=== PATIENT | female | born 1945 | race Caucasian/White ===

== ENCOUNTER 2017-05-25 03:26 | Inpatient (IN) ==
[2017-05-25] MEDS ORDERED: MORPHINE 2 MG/1 ML SYRINGE IV STA (04:09)
[2017-05-25] MEDS ORDERED: PIPERACILLIN/TAZOBACTAM 3,375 MG in SODIUM CHLORIDE 0.9% 100 ML IV STA (04:09)
[2017-05-25] MEDS ORDERED: ONDANSETRON 4 MG/2 ML VIAL IV STA ×2 (04:09→05:44)
[2017-05-25] MEDS ORDERED: PIPERACILLIN/TAZOBACTAM 3,375 MG VIAL IV ONE (04:12)
[2017-05-25] MEDS ORDERED: ONDANSETRON 4 MG/2 ML VIAL ONE ×2 (04:12→05:38)
[2017-05-25] MEDS ORDERED: SODIUM CHLORIDE 0.9% 100 ML IV ONE (04:12)
[2017-05-25] MEDS ORDERED: MORPHINE 2 MG/1 ML SYRINGE ONE (04:13)
[2017-05-25] MEDS ORDERED: SODIUM CHLORIDE 0.9% 1,000 ML IV STA (04:22)
[2017-05-25] MEDS ORDERED: ACETAMINOPHEN 325 MG TABLET PO PRN (05:57)
[2017-05-25] MEDS ORDERED: metroNIDAZOLE INJ 500 MG in PREMIX 1 EACH IV SCH ×2 (06:00→11:30)
[2017-05-25] MEDS ORDERED: DEXTROSE 5% NACL 0.45% 1,000 ML IV SCH (06:00)
[2017-05-25] MEDS: PIPERACILLIN/TAZOBACTAM 3,375 MG in SODIUM CHLORIDE 0.9% 100 ML IV SCH ×2 (07:56→14:30)
[2017-05-25] MEDS: HYDROmorphone 2 MG/1 ML VIAL IV PRN ×2 (08:08→14:21)
[2017-05-25] MEDS ORDERED: PANTOPRAZOLE 40 MG TABLET PO SCH (09:00)
[2017-05-25] MEDS: ONDANSETRON 4 MG/2 ML VIAL IV PRN ×2 (10:17→14:26)
[2017-05-25 13:11] VITALS: BP 118/62
[2017-05-25] MEDS ORDERED: ENOXAPARIN 30 MG/0.3 ML SYRINGE SUBCUT SCH (21:00)
== END 2017-05-25 14:35 | disposition hospice, home (50) | DRG 392 ==
LOC: N.ED 03:26 → N.EDINP 05:57 → N.3E 06:17
PROVIDERS: ADMIT Surgery; ATTEND Surgery

== ENCOUNTER 2020-10-10 13:26 | Inpatient (IN) ==
[2020-10-10 14:01] LABS: Basophils % 0.2 % (0.0-0.8); Eosinophils % 0.1 % (0.00-10.9); Hematocrit 31.7 VOL% (35.7-47.0); Hemoglobin 10.3 GM/DL (12.0-16.0); Immature Granulocytes % 12.3 %; Immature Granulocytes Absolute 1.77 #; Lymphocytes # 3.5 10*3/uL (1.4-4.0); Lymphocytes % 24.3 % (21.3-54.2); Mean Corpuscular HGB Conc 32.5 GM/DL (32-36); Mean Corpuscular Volume 82.3 FL (87-102); NRBC # 1.43 10*3/uL; Neutrophils % 55.1 % (38.7-73.9); Red Blood Count 3.85 MC/CUMM (3.8-5.5); Red Cell Distribution Width 19.8 % (9.3-17.3); White Blood Count 14.4 T/CUMM (4-12)
[2020-10-10 14:02] LABS: Platelet Count 23 T/CUMM (130-400)
[2020-10-10 14:16] LABS: Albumin 2.5 G/DL (3.4-5.0); Bilirubin,Total 1.5 MG/DL (0.2-1.0); Calcium 9.1 MG/DL (8.5-10.1); Osmolality,Calculated 283.5 MOS/KG (273-304); Potassium 3.9 MMOL/L (3.5-5.1); Total Protein 6.7 G/DL (6.4-8.2)
[2020-10-10 14:28] LABS: Band Neutrophils 5 % (0-10); Lymphocytes 22 % (20-55); Metamyelocytes 5 %; Myelocytes 3 %; Nucleated Red Blood Cells 8 (0-5); Segmented Neutrophils 62 % (50-85); Total Cells Counted 100
[2020-10-10] MEDS ORDERED: SODIUM CHLORIDE 0.9% 2,050 ML IV ONE (14:39)
[2020-10-10 14:43] LABS: Anisocytosis 2+; Atypical Lymphocytes 2+; Macrocytosis Slight; Microcytosis 2+; Platelet Estimate Decreased; Polychromasia 2+; Reactive Lymphocytes 1+; Schistocytes 1+
[2020-10-10 14:45] LABS: Poikilocytosis 1+
[2020-10-10] MEDS: PIPERACILLIN/TAZOBACTAM 3,375 MG in SODIUM CHLORIDE 0.9% 100 ML IV SCH ×2 (16:25→23:07)
[2020-10-10 16:28] LABS: Bacteria,Urine Occasional /HPF (Few); Bilirubin,Urine Negative (Negative); Blood, Urine Negative (Negative); Glucose,Urine (UA) Negative (Negative); Hyaline Casts,Urine 3 /LPF (0-3); Ketones,Urine Negative (Negative); Mucus,Urine Occasional /LPF (Occasional); Nitrite,Urine Negative (Negative); Protein,Urine Negative; RBC,Urine 1 /HPF (0-4); Squamous Epithelial Cell,Urine Occasional /HPF (0-10); Urine Appearance CLEAR (Clear); Urine Color Yellow (Yellow); Urine Urobilinogen < 2.0 EU/DL (0.2-1.0)
[2020-10-10] MEDS ORDERED: DEXTROSE 50% 25 GM/50 ML VIAL IV PRN (16:46)
[2020-10-10] MEDS ORDERED: hydrALAZINE 20 MG/1 ML VIAL IV PRN (16:46)
[2020-10-10] MEDS ORDERED: GLUCAGON 1 MG VIAL IM PRN (16:46)
[2020-10-10] MEDS: SODIUM CHLORIDE 0.9% 1,000 ML IV SCH (17:30)
[2020-10-10] MEDS: ALBUTEROL/IPRATROPIUM 3 ML NEB RESP TX SCH (19:37)
[2020-10-10] MEDS ORDERED: VANCOMYCIN INJ 1,250 MG in SODIUM CHLORIDE 0.9% 250 ML IV SCH (20:00)
[2020-10-10] MEDS: GABAPENTIN 300 MG CAPSULE PO SCH (23:31)
[2020-10-10] MEDS: traMADol 50 MG TABLET PO PRN (23:33)
[2020-10-11] MEDS: ALBUTEROL/IPRATROPIUM 3 ML NEB RESP TX SCH ×4 (01:23→20:42)
[2020-10-11 06:57] LABS: Basophils # 0.1 10*3/uL (0.0-0.2); Basophils % 0.7 % (0.0-0.8); Eosinophils % 0.2 % (0.00-10.9); Hematocrit 25.5 VOL% (35.7-47.0); Hemoglobin 8.4 GM/DL (12.0-16.0); Immature Granulocytes % 11.4 %; Immature Granulocytes Absolute 1.12 #; Lymphocytes # 2.9 10*3/uL (1.4-4.0); Lymphocytes % 29.4 % (21.3-54.2); Mean Corpuscular HGB Conc 32.9 GM/DL (32-36); Mean Corpuscular Volume 83.6 FL (87-102); Monocytes % 7.6 % (1.7-12.7); Neutrophils % 50.7 % (38.7-73.9); Red Blood Count 3.05 MC/CUMM (3.8-5.5); Red Cell Distribution Width 19.8 % (9.3-17.3); White Blood Count 9.8 T/CUMM (4-12)
[2020-10-11 07:11] LABS: Platelet Count 15 T/CUMM (130-400)
[2020-10-11 07:14] LABS: Calcium 8.1 MG/DL (8.5-10.1); Potassium 3.4 MMOL/L (3.5-5.1)
[2020-10-11 07:24] LABS: Band Neutrophils 4 % (0-10); Eosinophils 1 % (0-10); Hypochromasia 1+; Lymphocytes 25 % (20-55); Microcytosis 1+; Nucleated Red Blood Cells 10 (0-5); Platelet Estimate Decreased; Segmented Neutrophils 65 % (50-85); Total Cells Counted 100
[2020-10-11 07:25] LABS: Atypical Lymphocytes Few
[2020-10-11] MEDS ORDERED: POTASSIUM CHLORIDE 20 MEQ TABLET PO ONE (07:39)
[2020-10-11] MEDS: SODIUM CHLORIDE 0.9% 1,000 ML IV SCH ×3 (08:04→20:34)
[2020-10-11] MEDS ORDERED: SODIUM CHLORIDE 0.9% 1,000 ML IV PRN (08:25)
[2020-10-11] MEDS: PANTOPRAZOLE 40 MG TABLET PO SCH (09:10)
[2020-10-11] MEDS: ONDANSETRON 4 MG/2 ML VIAL IV PRN ×2 (12:53→18:10)
[2020-10-11] MEDS: traMADol 50 MG TABLET PO PRN (20:01)
[2020-10-11] MEDS: PIPERACILLIN/TAZOBACTAM 3,375 MG in SODIUM CHLORIDE 0.9% 100 ML IV SCH (20:33)
[2020-10-11] MEDS: GABAPENTIN 300 MG CAPSULE PO SCH (21:40)
[2020-10-12] MEDS: ALBUTEROL/IPRATROPIUM 3 ML NEB RESP TX SCH ×4 (01:12→19:13)
[2020-10-12] MEDS: SODIUM CHLORIDE 0.9% 1,000 ML IV SCH ×2 (02:21→16:16)
[2020-10-12 07:13] LABS: Basophils # 0.1 10*3/uL (0.0-0.2); Basophils % 0.7 % (0.0-0.8); Eosinophils % 0.2 % (0.00-10.9); Hematocrit 32.6 VOL% (35.7-47.0); Immature Granulocytes % 9.9 %; Immature Granulocytes Absolute 0.94 #; Lymphocytes # 2.7 10*3/uL (1.4-4.0); Lymphocytes % 28.8 % (21.3-54.2); Mean Corpuscular HGB Conc 31.9 GM/DL (32-36); Mean Corpuscular Volume 85.1 FL (87-102); Mean Platelet Volume 11.9 FL (9.6-12.0); Monocytes % 6.9 % (1.7-12.7); NRBC # 0.68 10*3/uL; Neutrophils % 53.5 % (38.7-73.9); Red Cell Distribution Width 18.9 % (9.3-17.3); White Blood Count 9.5 T/CUMM (4-12)
[2020-10-12 07:35] LABS: Hemoglobin 10.4 GM/DL (12.0-16.0); Platelet Count 36 T/CUMM (130-400); Red Blood Count 3.83 MC/CUMM (3.8-5.5)
[2020-10-12 07:38] LABS: Atypical Lymphocytes Few; Band Neutrophils 1 % (0-10); Hypochromasia 1+; Lymphocytes 29 % (20-55); Microcytosis 1+; Nucleated Red Blood Cells 6 (0-5); Platelet Estimate Decreased; Segmented Neutrophils 65 % (50-85); Total Cells Counted 100
[2020-10-12 07:39] LABS: Albumin 2.3 G/DL (3.4-5.0); Calcium 8.5 MG/DL (8.5-10.1); Osmolality,Calculated 283.1 MOS/KG (273-304); Potassium 4.2 MMOL/L (3.5-5.1); Total Protein 5.6 G/DL (6.4-8.2)
[2020-10-12] MEDS ORDERED: HEPARIN 5,000 UNIT/1 ML VIAL ONE ×2 (07:50→08:31)
[2020-10-12] MEDS ORDERED: HEPARIN 1,000 UNIT/1 ML VIAL ONE (08:30)
[2020-10-12] MEDS: PANTOPRAZOLE 40 MG TABLET PO SCH (09:37)
[2020-10-12] MEDS ORDERED: ONDANSETRON 4 MG TABLET PO PRN (09:39)
[2020-10-12] MEDS ORDERED: PROMETHAZINE INJ 25 MG in SODIUM CHLORIDE 0.9% 50 ML IV PRN (09:40)
[2020-10-12] MEDS ORDERED: LACTULOSE 20 GM/30 ML UDCUP PO PRN (09:40)
[2020-10-12] MEDS ORDERED: TEMAZEPAM 7.5 MG CAPSULE PO PRN (09:40)
[2020-10-12] MEDS ORDERED: chlorproMAZINE INJ 50 MG in SODIUM CHLORIDE 0.9% 100 ML IV PRN (09:40)
[2020-10-12] MEDS ORDERED: guaiFENesin 200 MG/10 ML UDCUP PO PRN (09:40)
[2020-10-12] MEDS ORDERED: MYLANTA/LIDO VISC 2:1 300 ML BOTTLE SWISH/SWAL PRN (09:40)
[2020-10-12] MEDS ORDERED: diphenhydrAMINE CAP 25 MG CAPSULE PO PRN (09:40)
[2020-10-12] MEDS ORDERED: chlorproMAZINE INJ 25 MG in SODIUM CHLORIDE 0.9% 100 ML IV PRN (09:40)
[2020-10-12] MEDS ORDERED: ALPRAZolam 0.25 MG TABLET PO PRN (09:40)
[2020-10-12] MEDS ORDERED: MYLANTA/LIDO VISC 2:1 300 ML BOTTLE SWISH/SPIT PRN (09:40)
[2020-10-12] MEDS ORDERED: ALUMINUM/MAGNES/SIMETH MAX STR 30 ML UDCUP PO PRN (09:40)
[2020-10-12] MEDS ORDERED: LOPERAMIDE 2 MG CAPSULE PO PRN ×2 (09:40)
[2020-10-12] MEDS ORDERED: ONDANSETRON 4 MG/2 ML VIAL IV PRN (09:40)
[2020-10-12] MEDS ORDERED: MAGNESIUM HYDROXIDE SUSP 30 ML UDCUP PO PRN (09:40)
[2020-10-12] MEDS: traMADol 50 MG TABLET PO PRN ×3 (09:51→22:07)
[2020-10-12] MEDS ORDERED: FUROSEMIDE 40 MG/4 ML VIAL IV SCH (15:30)
[2020-10-12] MEDS: MEROPENEM 500 MG in SODIUM CHLORIDE 0.9% 100 ML IV SCH ×2 (16:16→21:56)
[2020-10-12] MEDS: methylPREDNISolone SOD SUC INJ 500 MG in SODIUM CHLORIDE 0.9% 100 ML IV SCH (17:52)
[2020-10-12] MEDS: GABAPENTIN 300 MG CAPSULE PO SCH (21:56)
[2020-10-13] MEDS: SODIUM CHLORIDE 0.9% 1,000 ML IV SCH (00:27)
[2020-10-13] MEDS: ALBUTEROL/IPRATROPIUM 3 ML NEB RESP TX SCH ×4 (01:07→20:02)
[2020-10-13] MEDS: MEROPENEM 500 MG in SODIUM CHLORIDE 0.9% 100 ML IV SCH ×2 (04:10→09:32)
[2020-10-13] MEDS: methylPREDNISolone SOD SUC INJ 500 MG in SODIUM CHLORIDE 0.9% 100 ML IV SCH ×2 (04:12→17:17)
[2020-10-13 06:46] LABS: Basophils # 0.1 10*3/uL (0.0-0.2); Basophils % 0.5 % (0.0-0.8); Eosinophils % 0.1 % (0.00-10.9); Hematocrit 34.5 VOL% (35.7-47.0); Immature Granulocytes % 8.1 %; Immature Granulocytes Absolute 0.76 #; Lymphocytes # 2.1 10*3/uL (1.4-4.0); Lymphocytes % 22.1 % (21.3-54.2); Mean Corpuscular HGB Conc 31.9 GM/DL (32-36); Mean Corpuscular Volume 86.7 FL (87-102); NRBC # 0.51 10*3/uL; Neutrophils % 62.2 % (38.7-73.9); Red Blood Count 3.98 MC/CUMM (3.8-5.5); Red Cell Distribution Width 19.6 % (9.3-17.3); White Blood Count 9.4 T/CUMM (4-12)
[2020-10-13 06:49] LABS: Platelet Count 20 T/CUMM (130-400)
[2020-10-13 07:06] LABS: Albumin 2.4 G/DL (3.4-5.0); Bilirubin,Total 2.6 MG/DL (0.2-1.0); Calcium 8.8 MG/DL (8.5-10.1); Osmolality,Calculated 286.4 MOS/KG (273-304); Potassium 4.1 MMOL/L (3.5-5.1); Total Protein 6.5 G/DL (6.4-8.2)
[2020-10-13 07:26] LABS: Band Neutrophils 4 % (0-10); Eosinophils 1 % (0-10); Lymphocytes 25 % (20-55); Metamyelocytes 2 %; Nucleated Red Blood Cells 5 (0-5); Promyelocytes 1 %; Segmented Neutrophils 64 % (50-85); Total Cells Counted 100
[2020-10-13 07:27] LABS: Anisocytosis 1+; Hypochromasia 1+; Microcytosis 1+
[2020-10-13 07:28] LABS: Platelet Estimate Decreased; Polychromasia Slight
[2020-10-13] MEDS ORDERED: FUROSEMIDE 40 MG/4 ML VIAL IV PRN (08:09)
[2020-10-13] MEDS ORDERED: MELOXICAM 7.5 MG TABLET PO SCH (09:00)
[2020-10-13] MEDS: PANTOPRAZOLE 40 MG TABLET PO SCH (09:32)
[2020-10-13] MEDS ORDERED: SODIUM CHLORIDE 0.9% 1,000 ML IV PRN (10:06)
[2020-10-13] MEDS: GABAPENTIN 300 MG CAPSULE PO SCH (20:00)
[2020-10-13 20:02] VITALS: BP 122/83
== END 2020-10-13 20:47 | disposition expired | DRG 542 ==
LOC: EDBD → EDUNIT# → N.ED 13:26 → N.EDINP 16:46 → N.4E 22:15
PROVIDERS: ADMIT Emergency Medicine; ATTEND Emergency Medicine